=== PATIENT | male | born 1985 | race Caucasian/White ===

== ENCOUNTER 2024-02-05 18:04 | Emergency (ER) | payer MEDICAID, SELFPAY ==
[2024-02-05] VITALS (9 sets, daily range): BP systolic 104–117; BP diastolic 63–72; PULSE 96–128; RESP 14–26; TEMP 36.2; O2SAT 94–99; BMI 26.6
--- NOTE | 2024-02-05 18:46 | ED.FEVER ---
HPI - Fever General Date Seen: 02/05/24 Chief Complaint: Fever Stated Complaint: Bug bite 01/13, fever two weeks Time Seen by Provider: 02/05/24 18:31 Source: patient Mode of arrival: ambulatory Limitations: no limitations History of Present Illness HPI Narrative: Patient is a 38-year-old male presenting to the emergency department for a fever. He states he was bit by insect on 01/13. He developed cellulitis around this area but it improved on its own. This was on the does show portion of his left posterior thigh. Then starting on January 22 he started having intermittent fevers. He has also been having a lot of diaphoresis with this. States currently he is diaphoretic but is not as bad as he has been. His last fever he states was 102 just prior to coming into the emergency department. He did state he took Tylenol for his fever prior to arriving. He went to urgent care yesterday and was told to come to emergency department today he is if he continues to have fevers. Has not been given any medications at discharge yesterday. Denies chest pain, shortness of breath, lightheadedness, dizziness, headache, vision changes, abdominal pain, dysuria. Does state he has been having diarrhea for the past 2 weeks states he has only had 1 formed stool in that time frame. Has not had any nausea but does think he has been eating and drinking plenty. States he has been trying to drink as much water as possible. No other concerns noted at this time. Related Data Previous Rx's ?Medication ?Instructions ?Recorded doxycycline hyclate 100 mg capsule 100 mg PO BID #20 caps 02/05/24 Allergies Allergy/AdvReac Type Severity Reaction Status Date / Time No Known Drug Allergies Allergy Verified 02/05/24 18:14 Review of Systems Status of ROS Reports: 10 or more systems reviewed and unremarkable except as noted in History and below [facility] Social History Smoking Status: Former smoker Do you use any of these nicotine containing products: None Second hand tobacco smoke exposure: No How often do you have a drink containing alcohol: monthly or less How many standard drinks containing alcohol do you have on a typical day: 1 or 2 How often do you have six or more drinks on one occasion: Never AUDIT-C Alcohol total score: 1 Non-prescribed substance use: denies use service: No Exam Narrative Exam Narrative: Const: Well-nourished, Well-developed, in mild distress, diaphoretic Eyes: PERRL, no conjunctival injection, and symmetrical lids HENT: Atraumatic external nose and ears. Moist mucous membranes. Neck: Symmetric, trachea midline, No thyromegaly. CVS: Tachycardic, No murmurs or gallops. Peripheral pulses 2+ and equal in all extremities RESP: Unlabored respiratory effort. Clear to auscultation bilaterally. Tachypneic GI: Nontender/Nondistended, No rebound or guarding. MSK:Extremities w/o deformity, Normal Active ROM Skin: Warm, Dry. No rashes or lesions. Neuro: Normal Muscle tone, No focal neurological deficits. Psych: Awake, Alert, & Oriented x3. Appropriate mood and affect. Const Vital Signs, click to edit/add: Vital Signs - 24 hr 02/05/24 18:15 02/05/24 18:32 02/05/24 18:57 Temperature 97.1 F L 97.1 F L Pulse Rate 123 H Pulse Rate [Pulse Oximeter] 128 H Respiratory Rate 26 H 18 Blood Pressure 113/72 Blood Pressure [Right Upper Arm] 111/72 Pulse Oximetry 98 96 98 Oxygen Delivery Method Room Air Room Air 02/05/24 19:02 02/05/24 19:32 02/05/24 20:02 Temperature Pulse Rate 106 H 101 H 100 Pulse Rate [Pulse Oximeter] Respiratory Rate 16 14 16 Blood Pressure 109/67 104/63 115/68 Blood Pressure [Right Upper Arm] Pulse Oximetry 98 95 99 Oxygen Delivery Method Course Vital Signs Vital signs: Initial Vital Signs Temperature 97.1 F L 02/05/24 18:15 Temperature Source Temporal Artery Scan 02/05/24 18:15 Pulse Rate 128 H 02/05/24 18:15 Pulse Rhythm Regular 02/05/24 18:15 Respiratory Rate 26 H 02/05/24 18:15 Blood Pressure 111/72 02/05/24 18:15 Blood Pressure Mean 85 02/05/24 18:15 Blood Pressure Position Supine 02/05/24 18:15 Pulse Oximetry 98 02/05/24 18:15 Oxygen Delivery Method Room Air 02/05/24 18:15 Vital Signs Temperature 97.1 F L 02/05/24 18:15 Pulse Rate 128 H 02/05/24 18:15 Respiratory Rate 26 H 02/05/24 18:15 Blood Pressure 111/72 02/05/24 18:15 Pulse Oximetry 98 02/05/24 18:15 Oxygen Delivery Method Room Air 02/05/24 18:15 Temperature 97.1 F L 02/05/24 18:57 Pulse Rate 100 02/05/24 20:02 Respiratory Rate 16 02/05/24 20:02 Blood Pressure 115/68 02/05/24 20:02 Pulse Oximetry 99 02/05/24 20:02 Oxygen Delivery Method Room Air 02/05/24 18:57 Medications Administered Medications: Generic Name Dose Route Start Last Admin Trade Name Freq PRN Reason Stop Dose Admin Sodium Chloride 1,000 mls @ 1,000 mls/hr 02/05/24 20:00 02/05/24 20:00 0.9 % Sodium Chloride 1000 Ml IV 02/05/24 20:59 1,000 mls/hr .Q1H FRANCISCO Administration Discontinued Medications Generic Name Dose Route Start Last Admin Trade Name Freq PRN Reason Stop Dose Admin Lactated Ringer's 1,000 mls @ 1,000 mls/hr 02/05/24 18:44 02/05/24 20:00 Lactated Ringers 1000 Ml IV 02/05/24 19:43 Infused .Q1H ONE Infusion MDM - Fever MDM Narrative Medical decision making narrative: Patient is a 38-year-old male presenting for a fever. He does meet SIRS criteria at this time the septic workup was ordered including CBC, CMP, lactate, EKG, troponin. Will given a L fluid at this time. Will also check for tick-borne diseases. EKG and troponins ordered. Will also order COVID/flu/RSV. Patient's heart rate did improve into the upper 90s to low 100s with the 1 L of fluid. CBC returned showing hemoglobin 9.5. He has no history of anemia that he is aware of. He does states he does not have a primary care provider at this time. Will check a reticulocyte count. This is a normocytic anemia. His CMP shows a sodium of 128, potassium 3.2, AST 106 and ALT 96. He is not aware of any history of liver disease. Also no history of hyponatremia that he is aware of. He does not seem to be acutely symptomatic of this hyponatremia. COVID/flu/RSV is negative. I am not sure where causing is that abnormalities. I am concern for tick-borne diseases at this time. I will give him another L of normal saline. EKG shows no signs of arrhythmias or other concerning findings. Troponin within normal limits. He is not having any neck pain or headache no signs of encephalitis or meningitis. He is feeling much better at this time his heart rate is taking around the mid 90s. He looks much better on my exam also. Reticulocyte count is normal at 1 sure was causing this normal sick anemia. I did check alcohol level is slightly elevated liver enzymes and hyponatremia. At this point looks well and can be discharged I will treat him empirically for tick-borne diseases though. Doxycycline ordered. I did give him information how to set up primary care. Lab Data Labs: Lab Results 02/05/24 02/05/24 02/05/24 Range/Units 18:57 20:09 20:12 WBC 9.41 (4.50-11.00) K/uL RBC 3.31 L (4.30-5.90) m/uL Hgb 9.5 L (13.5-17.5) gm/dL Hct 27.8 L (37.0-53.0) % MCV 84 (80-100) fL MCH 29 (26-34) pg MCHC 34 (32-36) gm/dL RDW Coeff of Amanda 14.5 (11.5-15.5) % Plt Count 152 (140-440) K/uL Neut % (Auto) 62.0 (42.0-72.0) % Lymph % (Auto) 15.9 L (20-44) % [place] % (Auto) 21.0 H (0.0-11.0) % Eos % (Auto) 0.1 (0.0-7.0) % Baso % (Auto) 0.3 (0.0-3.0) % Neut # (Auto) 5.82 (1.7-7.0) K/uL Lymph # (Auto) 1.50 (0.90-2.90) K/uL [place] # (Auto) 2.00 H (0.00-0.90) K/UL Eos # (Auto) 0.01 (0.00-0.50) K/uL Baso # (Auto) 0.03 (0.00-0.30) K/uL Abs Immat Gran (auto) 0.07 (0.00-0.30) K/uL Imm/Tot Granulo (auto) 0.7 % Absolute Retic 0.07 (0.03-0.08) # Percent Retic 2.3 H (0.5-2.0) % Immature Retic Fraction 19.3 H (2.3-13.4) % Retic Hgb Equivalent 28.2 L (29.0-35.0) pg Sodium 128 L (135-149) mmol/L Potassium 3.2 L (3.6-5.1) mmol/L Chloride 99 (96-114) mmol/L Carbon Dioxide 22 (20-32) mmol/L Anion Gap 7 (7-15) mEq/L BUN 13 (5-24) mg/dL Creatinine 0.8 (0.5-1.5) mg/dL Estimated Creat Clear 126.43 Estimated GFR 117 ml/min Glucose 111 (60-115) mg/dL Lactate 1.6 (0.5-1.9) mmol/L Calcium 8.0 L (8.4-10.6) mg/dL Magnesium 2.1 (1.5-2.6) mg/dL Total Bilirubin 1.4 (0.1-1.5) mg/dL AST 106 H (12-35) U/L ALT 96 H (4-50) U/L Alkaline Phosphatase 145 (40-150) U/L Total Protein 6.8 (6.0-8.3) g/dL Albumin 3.3 (3.3-5.0) g/dL Ethyl Alcohol < 0.01 L (0.01-0.03) % SARS-CoV-2 (PCR) Negative SARS-CoV-2 (Negative) Influenza Type A (PCR) Negative PCR FLU A (Negative) Influenza Type B (PCR) Negative PCR FLU B (Negative) RSV (PCR) Negative PCR RSV (Negative) Lab Acknowledgement Test Added Test Added POC Troponin I 0.00 L (0.01-0.04) ng/ml ECG Data Attestation: I personally reviewed and interpreted this ECG as follows: Prior ECG tracings: not available for review Interpretation: Sinus tachycardia with a rate 105 beats per minute, normal intervals, normal axis, no ST or T-wave abnormalities Discharge Plan Discharge Clinical Impression: Fever of unknown origin Patient Disposition: Home, Self-Care Instructions: Fever in Adults (ED) Additional Instructions: You can try and set up primary care through [facility] in [place] or [place]. Continue to work on psych concerns as is important get follow-up for your laboratory abnormalities. I will call you on Thursday to see how you are doing. Your laboratory abnormalities include hyponatremia, mildly elevated LFTs, normocytic anemia. Make sure you take the antibiotics are prescribed you as directed. Prescriptions: New doxycycline hyclate 100 mg capsule 100 mg PO BID Qty: 20 0RF Follow Up/Referrals: Provider,Not a Local [Primary Care Provider] - Stand Alone Forms: [employer] Info Instructions
[2024-02-05] MEDS: LACTATED RINGERS 1000 ML 1,000 ML IV (18:59)
[2024-02-05 19:02] LABS: Lactate Sepsis w/Reflex* 1.6 mmol/L (0.5-1.9)
[2024-02-05 19:03] LABS: Basophils Absolute Auto 0.03 K/uL (0.00-0.30); Basophils Percent Auto 0.3 % (0.0-3.0); Eosinophils Absolute Auto 0.01 K/uL (0.00-0.50); Eosinophils Percent Auto 0.1 % (0.0-7.0); Hematocrit 27.8 % (37.0-53.0); Hemoglobin* 9.5 gm/dL (13.5-17.5); Immature Granulocytes Abs Auto 0.07 K/uL (0.00-0.30); Immature Granulocytes Pct Auto 0.7 %; Lymphocytes Percent Auto 15.9 % (20-44); Mean Corpuscular HGB Conc 34 gm/dL (32-36); Mean Corpuscular Hemoglobin 29 pg (26-34); Mean Corpuscular Volume 84 fL (80-100); Neutrophils Absolute Auto 5.82 K/uL (1.7-7.0); Platelet Count* 152 K/uL (140-440); RDW Coefficient of Variation % 14.5 % (11.5-15.5); Red Blood Count 3.31 m/uL (4.30-5.90); White Blood Count* 9.41 K/uL (4.50-11.00)
[2024-02-05 19:04] LABS: Slide Review Reflex No
[2024-02-05 19:18] LABS: Albumin* 3.3 g/dL (3.3-5.0)
[2024-02-05 19:19] LABS: Chloride* 99 mmol/L (96-114); Potassium* 3.2 mmol/L (3.6-5.1); Sodium* 128 mmol/L (135-149)
[2024-02-05 19:21] LABS: Anion Gap 7 mEq/L (7-15); Bilirubin Total* 1.4 mg/dL (0.1-1.5); Carbon Dioxide* 22 mmol/L (20-32); Creatinine* 0.8 mg/dL (0.5-1.5); Est. Creatinine Clearance* 126.43; Estimated Glomerular Filt Rate 117 ml/min
[2024-02-05 19:22] LABS: Alanine Aminotransferase* 96 U/L (4-50); Alkaline Phosphatase* 145 U/L (40-150); Aspartate Amino Transferase* 106 U/L (12-35); Blood Urea Nitrogen* 13 mg/dL (5-24); Glucose* 111 mg/dL (60-115); Magnesium* 2.1 mg/dL (1.5-2.6); Total Protein* 6.8 g/dL (6.0-8.3)
[2024-02-05 19:41] LABS: PCR FLU A Negative PCR FLU A (Negative); PCR FLU B Negative PCR FLU B (Negative); PCR RSV Negative PCR RSV (Negative); SARS PCR* Negative SARS-CoV-2 (Negative)
[2024-02-05] MEDS: 0.9 % SODIUM CHLORIDE 1000 ml 1,000 ML IV (20:00)
[2024-02-05 20:22] LABS: Immature Reticulocyte Fraction 19.3 % (2.3-13.4); Reticulocyte Hemoglobin Equivi 28.2 pg (29.0-35.0); Reticulocyte Percent 2.3 % (0.5-2.0); Reticulocytes Absolute 0.07 # (0.03-0.08)
[2024-02-05 20:36] LABS: Ethanol* < 0.01 % (0.01-0.03)
[2024-02-05] MEDS: DOXYCYCLINE HYCLATE 100 MG PO (20:49)
[2024-02-08 09:23] LABS: Anaplasma phagocyt PCR Not Detected; Babesia microti by PCR Detected; Babesia species by PCR Detected; Ehrlichia chaffeensis by PCR Not Detected; Ehrlichia ewingii/canis by PCR Not Detected; Ehrlichia muris-like by PCR Not Detected
[2024-02-08 13:23] LABS: Lyme ELISA Reflex 1.88 IV (<=0.90); Lyme Mod 2Tier Test Interp Positive (Negative)
== END 2024-02-05 21:00 | disposition home or self-care (01) ==
PROVIDERS: Emergency Provider Student in an Organized Health Care Education/Training Program
DX: B60.00 Babesiosis, unspecified (principal)
CPT/HCPCS: 36415; 80053; 82077; 83605; 83735; 84484; 85025; 85045; 86618; 87468; 87469; 87484; 87631; 87798; 93005; 96360; 99283; 99284; A9270; J7030; J7120